=== PATIENT | female | born 1980 | race Two or more races ===

== ENCOUNTER 2019-12-23 05:11 | Emergency (ER) | payer MEDICAID ==
[~2019-12-23] VITALS: Ht 162.6 cm; Wt 84.0 kg
[2019-12-23] MEDS ORDERED: CARB-188 OT (05:25)
[2019-12-23] MEDS ORDERED: NEOMYCIN/POLYMYXIN B/HYDROCORT 10 ML OTIC SOLUTION AD ONE (06:30)
[2019-12-23] MEDS ORDERED: IBUPROFEN 600 MG TABLET PO ONE (06:30)
[2019-12-23] MEDS ORDERED: CIPROFLOXACIN HCL 250 MG TABLET PO ONE (06:30)
[2019-12-23 06:46] VITALS: BP 139/77
== END 2019-12-23 06:59 | disposition home or self-care (01) ==
LOC: EMS 05:13
DX: H60.91 Unspecified otitis externa, right ear (principal)
CPT/HCPCS: Z7502; Z7610